=== PATIENT | female | born 1960 | race Caucasian/White ===

== ENCOUNTER → 2024-05-22 18:30 | Outpatient (REF) | payer OTHER, SELFPAY | LOC: RCS 18:30 | PROVIDERS: ATTENDING PHYSICIAN Physician Assistant | DX: Z01.818 Encounter for other preprocedural examination (principal); Z12.31 Encounter for screening mammogram for malignant neoplasm of breast; Z12.39 Encounter for other screening for malignant neoplasm of breast | CPT/HCPCS: 77063; 77067; 93005 ==

== ENCOUNTER → 2025-04-03 09:29 | Outpatient (REF) | payer OTHER, SELFPAY ==
[2025-04-03 11:54] LABS: Glycohemoglobin (HgbA1c) 5.4 % (4.0-5.6)
[2025-04-03 12:03] LABS: ALT (SGPT) 16 U/L (0-35); AST (SGOT) 20 U/L (14-36); Albumin 4.8 g/dl (3.5-5.0); Alkaline Phosphatase 83 U/L (38-126); Blood Urea Nitrogen 18 mg/dl (7-17); Calcium 9.9 mg/dl (8.4-10.2); Carbon Dioxide 22 mmol/L (22-30); Chloride 110 mmol/L (98-107); Glucose 80 mg/dl (70-99); HDL Cholesterol 67 mg/dl; LDL Cholesterol, Calculated 96 mg/dl; Potassium 4.5 mmol/L (3.5-5.1); Sodium 142 mmol/L (135-145); Total Protein 7.6 g/dl (6.3-8.2); Very Low Density Lipoprotein 40 mg/dl (0-30); eGFR > 60.00
== END ==
LOC: REG 09:29
PROVIDERS: ATTENDING PHYSICIAN Psychiatry & Neurology Forensic Psychiatry; FAMILY PHYSICIAN Family Medicine
DX: Z79.899 Other long term (current) drug therapy (principal)
CPT/HCPCS: 36415; 80053; 80061; 83036

== ENCOUNTER → 2025-04-19 16:56 | Outpatient (REF) | payer OTHER, SELFPAY | LOC: RAD 16:56 | PROVIDERS: ATTENDING PHYSICIAN Family Medicine | DX: J22 Unspecified acute lower respiratory infection (principal) | CPT/HCPCS: 71046 ==